=== PATIENT | female | born 1970 | race African-American/Black ===

== ENCOUNTER 2019-01-27 18:23 | Emergency (ER) | payer OTHER ==
[~2019-01-27] VITALS: Ht 167.6 cm; Wt 55.0 kg
[2019-01-27 19:12] LABS: BASOPHILS % 1.4 % (0.0-2.0); EOSINOPHILS % 0.9 % (0.0-5.0); HEMATOCRIT. 32.1 % (36.0-48.0); HEMOGLOBIN. 10.6 g/dL (12.0-16.0); MEAN CORPUSCULAR HEMOGLOBIN 29.9 pg (28.0-32.0); MEAN CORPUSCULAR VOLUME 90.1 fL (81.0-99.0); MEAN PLATELET VOLUME 7.9 fl (7.4-10.4); NEUTROPHILS % 54.7 % (40.0-76.0); PLATELET 250 x1000/uL (130-400); RED BLOOD CELL COUNT 3.56 mill/uL (4.2-5.4); RED CELL DISTRIBUTION WIDTH 14.8 % (11.6-14.6)
[2019-01-27 19:15] LABS: CHLORIDE 107 mEq/L (98-107)
[2019-01-27 19:16] LABS: INR 1.1; PROTHROMBIN TIME 11.4 sec (9.6-11.0)
[2019-01-27 19:22] LABS: ETHANOL BLOOD < 10 mg/dL
[2019-01-27 19:31] LABS: HCG SCREEN NEGATIVE
[2019-01-27] MEDS ORDERED: ASPIRIN 325MG TABLET PO ONE (22:15)
[2019-01-27] MEDS ORDERED: CLOPIDOGREL 75MG TABLET PO ONE (22:15)
[2019-01-27 22:50] VITALS: BP 106/76
== END 2019-01-27 23:20 | disposition short-term general hospital (02) ==
LOC: ER 18:28
DX: I63.9 Cerebral infarction, unspecified (principal); F41.9 Anxiety disorder, unspecified; I10 Essential (primary) hypertension; J45.909 Unspecified asthma, uncomplicated; K76.9 Liver disease, unspecified; Z88.5 Allergy status to narcotic agent; Z91.041 Radiographic dye allergy status
CPT/HCPCS: 36415; 71045; 80320; 82140; 84703; 93005; 99291; G0480

== ENCOUNTER 2020-09-06 00:39 | Emergency (ER) | payer OTHER ==
[~2020-09-06] VITALS: Ht 172.7 cm; Wt 80.0 kg
[2020-09-06 01:35] LABS: BASOPHILS % 0.3 % (0.0-2.0); EOSINOPHILS % 0.6 % (0.0-5.0); HEMATOCRIT. 45.3 % (36.0-48.0); HEMOGLOBIN. 14.9 g/dL (12.0-16.0); LYMPHOCYTES % 39.2 % (20.0-50.0); MEAN CORPUSCULAR HEMOGLOBIN 30.2 pg (28.0-32.0); MEAN CORPUSCULAR VOLUME 91.5 fL (81.0-99.0); MEAN PLATELET VOLUME 8.5 fl (7.4-10.4); MONOCYTES % 6.4 % (2.0-8.0); NEUTROPHILS % 53.5 % (40.0-76.0); PLATELET 88 x1000/uL (130-400); RED BLOOD CELL COUNT 4.95 mill/uL (4.2-5.4); RED CELL DISTRIBUTION WIDTH 20.2 % (11.6-14.6)
[2020-09-06 01:41] LABS: CHLORIDE 105 mEq/L (98-107)
[2020-09-06 01:45] LABS: ETHANOL BLOOD < 10 mg/dL
[2020-09-06 05:40] LABS: *AMPHETAMINES SCREEN URINE NEGATIVE (NEGATIVE); *BARBITURATES SCREEN URINE NEGATIVE (NEGATIVE)
[2020-09-06 05:42] LABS: *BENZODIAZEPINES SCREEN URINE NEGATIVE (NEGATIVE); *COCAINE SCREEN URINE NEGATIVE (NEGATIVE); CANNABINOID URINE SCREEN NEGATIVE (NEGATIVE); METHADONE URINE SCREEN NEGATIVE (NEGATIVE); OPIATES URINE SCREEN NEGATIVE (NEGATIVE); PHENCYCLIDINE URINE SCREEN NEGATIVE (NEGATIVE)
[2020-09-06 07:01] VITALS: BP 142/81
== END 2020-09-06 07:16 | disposition left against medical advice (07) ==
LOC: ER 01:02 → CANBEDREQ 13:08
DX: R07.89 Other chest pain (principal); R94.39 Abnormal result of other cardiovascular function study; I10 Essential (primary) hypertension; J45.909 Unspecified asthma, uncomplicated; F17.210 Nicotine dependence, cigarettes, uncomplicated; Z86.73 Personal history of transient ischemic attack (TIA), and cerebral infarction without residual deficits; Z88.0 Allergy status to penicillin; Z88.5 Allergy status to narcotic agent; Z91.041 Radiographic dye allergy status
CPT/HCPCS: 36415; 71045; 80053; 80305; 80320; 83880; 84484; 85025; 93005; 99285; G0480

== ENCOUNTER 2021-03-23 03:21 | Inpatient (IN) | payer MEDICAID, OTHER ==
[~2021-03-23] VITALS: Ht 180.3 cm; Wt 72.4 kg
[2021-03-23] MEDS ORDERED: ASPIRIN 81MG TABLET PO ONE (03:45)
[2021-03-23] MEDS ORDERED: NITROGLYCERIN 0.4MG TABLET SL SL PRN (03:45)
[2021-03-23 04:20] LABS: BASOPHILS % 0.4 % (0.0-2.0); EOSINOPHILS % 0.5 % (0.0-5.0); HEMATOCRIT. 40.5 % (36.0-48.0); HEMOGLOBIN. 13.6 g/dL (12.0-16.0); LYMPHOCYTES % 29.6 % (20.0-50.0); MEAN CORPUSCULAR HEMOGLOBIN 31.9 pg (28.0-32.0); MEAN CORPUSCULAR VOLUME 94.8 fL (81.0-99.0); MEAN PLATELET VOLUME 8.9 fl (7.4-10.4); MONOCYTES % 7.5 % (2.0-8.0); PLATELET 70 x1000/uL (130-400); RED BLOOD CELL COUNT 4.28 mill/uL (4.2-5.4); RED CELL DISTRIBUTION WIDTH 19.1 % (11.6-14.6)
[2021-03-23 04:27] LABS: CHLORIDE 106 mEq/L (98-107)
[2021-03-23] MEDS ORDERED: POTASSIUM CHLORIDE INJ 40 MEQ in DEXT 5% WATER 250 ML IV NR (05:45)
[2021-03-23] MEDS ORDERED: NITROGLYCERIN OINT 1GM/INCH UDPKT TD PRN (10:15)
[2021-03-23] MEDS: ASPIRIN 81MG TABLET PO SCH (11:06)
[2021-03-23] MEDS ORDERED: ONDANSETRON HCL 4MG/2ML INJ IV PRN (14:15)
[2021-03-23] MEDS ORDERED: FLUTICASONE/VILANTEROL 200-25 BLST.W.DEV ORI SCH (14:15)
[2021-03-23] MEDS ORDERED: ENOXAPARIN 40MG/0.4ML SYR SUBCUT SCH (14:15)
[2021-03-23] MEDS ORDERED: ACETAMINOPHEN 325MG TABLET PO PRN (14:15)
[2021-03-23] MEDS ORDERED: CLONIDINE 0.1MG TABLET PO PRN (14:15)
[2021-03-23 14:40] LABS: PROTHROMBIN TIME 10.9 sec (9.6-11.0)
[2021-03-23] MEDS: SODIUM CHLORIDE 0.9% 1,000 ML IV SCH (15:18)
[2021-03-23 17:45] VITALS: BP 108/85
[2021-03-23 17:58] VITALS: BP 131/98
[2021-03-23] MEDS ORDERED: PNEUMOCOCCAL 23-VAL P-SAC VAC 0.5 ML IM ONE (18:00)
[2021-03-23 20:00] VITALS: BP 116/79
[2021-03-23] MEDS: IPRATROPIUM/ALBUTEROL 0.5-3(2.5)MG/3ML NEB HHN SCH (20:41)
[2021-03-23] MEDS: METOPROLOL TARTRATE 25MG TABLET PO SCH (20:57)
[2021-03-23] MEDS: ATORVASTATIN CALCIUM 20MG TABLET PO SCH (20:58)
[2021-03-23 22:00] VITALS: BP 108/70
[2021-03-24] VITALS (11 sets, daily range): BP systolic 111–129; BP diastolic 70–94
[2021-03-24] MEDS: IPRATROPIUM/ALBUTEROL 0.5-3(2.5)MG/3ML NEB HHN SCH ×3 (01:00→04:50)
[2021-03-24] MEDS: SODIUM CHLORIDE 0.9% 1,000 ML IV SCH ×2 (04:04→18:05)
[2021-03-24 06:13] LABS: CHLORIDE 108 mEq/L (98-107)
[2021-03-24 06:41] LABS: BASOPHILS % 0.3 % (0.0-2.0); EOSINOPHILS % 0.9 % (0.0-5.0); HEMATOCRIT. 37.9 % (36.0-48.0); HEMOGLOBIN. 12.5 g/dL (12.0-16.0); MEAN CORPUSCULAR HEMOGLOBIN 31.4 pg (28.0-32.0); MEAN CORPUSCULAR VOLUME 95.3 fL (81.0-99.0); MEAN PLATELET VOLUME 9.3 fl (7.4-10.4); MONOCYTES % 11.3 % (2.0-8.0); NEUTROPHILS % 51.5 % (40.0-76.0); PLATELET 70 x1000/uL (130-400); RED BLOOD CELL COUNT 3.98 mill/uL (4.2-5.4)
[2021-03-24] MEDS: METOPROLOL TARTRATE 25MG TABLET PO SCH ×2 (09:43→21:14)
[2021-03-24] MEDS: ASPIRIN 81MG TABLET PO SCH (09:43)
[2021-03-24] MEDS ORDERED: BENZONATATE 100MG CAPSULE PO PRN (10:00)
[2021-03-24] MEDS ORDERED: DEXT 5% WATER + KCL 40MEQ/L 1,000 ML IV ONE (10:00)
[2021-03-24] MEDS ORDERED: MAGNESIUM 2 G PREMIX 50 ML IV SCH (11:00)
[2021-03-24] MEDS ORDERED: POTASSIUM CHLORIDE INJ 40 MEQ in DEXT 5% WATER 250 ML IV SCH (11:00)
[2021-03-24] MEDS: ATORVASTATIN CALCIUM 20MG TABLET PO SCH (21:13)
[2021-03-24] MEDS: ZOLPIDEM TARTRATE 5MG TABLET PO PRN (21:18)
[2021-03-25] VITALS (10 sets, daily range): BP systolic 108–146; BP diastolic 70–97
[2021-03-25] MEDS: SODIUM CHLORIDE 0.9% 1,000 ML IV SCH ×2 (06:18→19:51)
[2021-03-25] MEDS: BUDESONIDE 0.5MG/2ML NEB HHN SCH ×2 (07:43→08:00)
[2021-03-25] MEDS: IPRATROPIUM/ALBUTEROL 0.5-3(2.5)MG/3ML NEB HHN SCH ×4 (08:00→23:04)
[2021-03-25] MEDS ORDERED: REGADENOSON 0.4 MG/5 ML IV ONE (09:00)
[2021-03-25] MEDS: ASPIRIN 81MG TABLET PO SCH (09:56)
[2021-03-25] MEDS: METOPROLOL TARTRATE 25MG TABLET PO SCH ×2 (09:56→20:21)
[2021-03-25] MEDS: ATORVASTATIN CALCIUM 20MG TABLET PO SCH (20:20)
[2021-03-25] MEDS: ZOLPIDEM TARTRATE 5MG TABLET PO PRN (20:20)
[2021-03-26] MEDS: IPRATROPIUM/ALBUTEROL 0.5-3(2.5)MG/3ML NEB HHN SCH ×4 (01:00→12:00)
[2021-03-26 02:00] VITALS: BP 133/77
[2021-03-26 04:00] VITALS: BP 115/88
[2021-03-26 06:00] VITALS: BP 146/91
[2021-03-26 06:32] LABS: BASOPHILS % 0.3 % (0.0-2.0); EOSINOPHILS % 0.7 % (0.0-5.0); HEMOGLOBIN. 12.2 g/dL (12.0-16.0); LYMPHOCYTES % 33.7 % (20.0-50.0); MEAN CORPUSCULAR HEMOGLOBIN 31.7 pg (28.0-32.0); MEAN CORPUSCULAR VOLUME 96.2 fL (81.0-99.0); MEAN PLATELET VOLUME 9.5 fl (7.4-10.4); MONOCYTES % 9.7 % (2.0-8.0); NEUTROPHILS % 55.6 % (40.0-76.0); PLATELET 107 x1000/uL (130-400); RED BLOOD CELL COUNT 3.85 mill/uL (4.2-5.4); RED CELL DISTRIBUTION WIDTH 19.1 % (11.6-14.6)
[2021-03-26 06:58] LABS: CHLORIDE 111 mEq/L (98-107)
[2021-03-26 07:47] VITALS: BP 139/84
[2021-03-26] MEDS: SODIUM CHLORIDE 0.9% 1,000 ML IV SCH (08:55)
[2021-03-26] MEDS ORDERED: REGADENOSON 0.4 MG/5 ML IV ONE (09:36)
[2021-03-26] MEDS: ASPIRIN 81MG TABLET PO SCH (10:28)
[2021-03-26] MEDS: METOPROLOL TARTRATE 25MG TABLET PO SCH (10:29)
== END 2021-03-26 11:40 | disposition left against medical advice (07) | DRG 203 ==
LOC: ER 03:21 → MICUSO 06:57 → 3WST 15:24
PROVIDERS: ADMIT Internal Medicine; ATTEND Internal Medicine
DX: M94.0 Chondrocostal junction syndrome [Tietze] (principal); I69.354 Hemiplegia and hemiparesis following cerebral infarction affecting left non-dominant side; Z20.822 Contact with and (suspected) exposure to COVID-19; I10 Essential (primary) hypertension; F17.210 Nicotine dependence, cigarettes, uncomplicated; J45.909 Unspecified asthma, uncomplicated; E78.5 Hyperlipidemia, unspecified; F10.20 Alcohol dependence, uncomplicated; E87.6 Hypokalemia; Z91.14 Patient's other noncompliance with medication regimen; Z88.0 Allergy status to penicillin; Z82.49 Family history of ischemic heart disease and other diseases of the circulatory system; Z88.6 Allergy status to analgesic agent; Z91.041 Radiographic dye allergy status
CPT/HCPCS: 36415; 71045; 78452; 80048; 80053; 80061; 83735; 83880; 84484; 85025; 87426; 90732; 93005; 93017; 93306; 93970; 99285; A9500; J2785; J3475; J3480; J7060; J7626

== ENCOUNTER 2021-05-06 03:14 | Inpatient (IN) | payer OTHER ==
[~2021-05-06] VITALS: Ht 180.3 cm; Wt 71.2 kg
[2021-05-06] MEDS ORDERED: NITROGLYCERIN 50MG PREMIX 250 ML IV ONE (04:00)
[2021-05-06] MEDS ORDERED: HEPARIN 25,000 UNITS PREMIX 250 ML IV PRN (04:00)
[2021-05-06] MEDS ORDERED: HEPARIN 5000 UNITS/ML VIAL IV PRN ×2 (04:00)
[2021-05-06] MEDS ORDERED: HEPARIN 5000 UNITS/ML VIAL IV SCH (04:00)
[2021-05-06 04:10] LABS: BASOPHILS % 0.4 % (0.0-2.0); EOSINOPHILS % 0.4 % (0.0-5.0); HEMATOCRIT. 37.2 % (36.0-48.0); HEMOGLOBIN. 12.4 g/dL (12.0-16.0); LYMPHOCYTES % 29.2 % (20.0-50.0); MEAN CORPUSCULAR HEMOGLOBIN 31.9 pg (28.0-32.0); MEAN CORPUSCULAR VOLUME 95.4 fL (81.0-99.0); PLATELET 94 x1000/uL (130-400); RED CELL DISTRIBUTION WIDTH 18.2 % (11.6-14.6)
[2021-05-06 04:17] LABS: CHLORIDE 106 mEq/L (98-107)
[2021-05-06] MEDS ORDERED: ONDANSETRON HCL 4MG/2ML INJ IV PRN (10:30)
[2021-05-06] MEDS ORDERED: HYDROCODONE/ACETAMINOPHEN 5/325MG TABLET PO PRN (10:30)
[2021-05-06] MEDS ORDERED: MAGNESIUM/ALUMINUM HYDROXIDE/SIMETHICONE 30ML UDC PO PRN (10:30)
[2021-05-06] MEDS ORDERED: DOCUSATE SODIUM 100MG CAPSULE PO PRN (10:30)
[2021-05-06] MEDS ORDERED: IPRATROPIUM/ALBUTEROL 0.5-3(2.5)MG/3ML NEB HHN PRN (10:30)
[2021-05-06] MEDS ORDERED: CLONIDINE 0.1MG TABLET PO PRN (10:30)
[2021-05-06] MEDS ORDERED: HYDRALAZINE 20MG/ML VIAL IV PRN (10:30)
[2021-05-06] MEDS ORDERED: GUAIFENESIN 200MG/10ML SUGAR FREE UDC PO PRN (10:30)
[2021-05-06] MEDS ORDERED: ACETAMINOPHEN 325MG TABLET PO PRN (10:30)
[2021-05-06] MEDS ORDERED: DIPHENHYDRAMINE 50MG/ML VIAL IV PRN (10:30)
[2021-05-06] MEDS ORDERED: MORPHINE SULFATE 2 MG/ML CPJ (NOT FOR IM USE) IV PRN (10:30)
[2021-05-06] MEDS ORDERED: NALOXONE HCL 0.4MG/ML VIAL IV PRN (10:45)
[2021-05-06 12:30] VITALS: BP 127/78
[2021-05-06] MEDS ORDERED: POTASSIUM CHLORIDE INJ 40 MEQ in DEXT 5% WATER 250 ML IV NR (13:00)
[2021-05-06] MEDS: SODIUM CHLORIDE 0.9% INJ 3ML FLUSH IVF SCH ×2 (14:00→21:56)
[2021-05-06 16:00] VITALS: BP 127/78
[2021-05-06] MEDS: ASPIRIN 81MG TABLET PO SCH (17:52)
[2021-05-06] MEDS: THIAMINE HCL 100MG TABLET PO SCH (17:52)
[2021-05-06] MEDS: ENOXAPARIN 40MG/0.4ML SYR SUBCUT SCH (17:52)
[2021-05-06] MEDS: METOPROLOL TARTRATE 25MG TABLET PO SCH ×2 (17:52→21:56)
[2021-05-06] MEDS: FOLIC ACID/VITAMIN B COMP W-C TABLET PO SCH (17:53)
[2021-05-06 18:00] VITALS: BP 139/89
[2021-05-06 18:18] LABS: CREATINE KINASE 36 IU/L (26-192)
[2021-05-06 18:20] LABS: CREATINE KINASE MB FRACTION < 1.0 ng/mL (0.5-3.6)
[2021-05-06 20:00] VITALS: BP 121/94
[2021-05-06] MEDS: LORAZEPAM 2MG/ML CPJ IV PRN (21:56)
[2021-05-06 22:00] VITALS: BP 117/75
[2021-05-06 23:30] LABS: CREATINE KINASE 42 IU/L (26-192)
[2021-05-06 23:31] LABS: CREATINE KINASE MB FRACTION < 1.0 ng/mL (0.5-3.6)
[2021-05-07] VITALS (13 sets, daily range): BP systolic 100–142; BP diastolic 58–93
[2021-05-07] MEDS: SODIUM CHLORIDE 0.9% INJ 3ML FLUSH IVF SCH ×3 (05:20→22:19)
[2021-05-07 06:31] LABS: BASOPHILS % 0.2 % (0.0-2.0); EOSINOPHILS % 0.7 % (0.0-5.0); HEMATOCRIT. 35.6 % (36.0-48.0); HEMOGLOBIN. 11.9 g/dL (12.0-16.0); LYMPHOCYTES % 46.4 % (20.0-50.0); MEAN CORPUSCULAR HEMOGLOBIN 31.3 pg (28.0-32.0); MEAN CORPUSCULAR VOLUME 93.7 fL (81.0-99.0); MEAN PLATELET VOLUME 9.2 fl (7.4-10.4); MONOCYTES % 13.7 % (2.0-8.0); PLATELET 87 x1000/uL (130-400); RED CELL DISTRIBUTION WIDTH 17.8 % (11.6-14.6)
[2021-05-07 06:43] LABS: CHLORIDE 112 mEq/L (98-107)
[2021-05-07] MEDS: ASPIRIN 81MG TABLET PO SCH (08:46)
[2021-05-07] MEDS: METOPROLOL TARTRATE 25MG TABLET PO SCH ×2 (08:46→21:00)
[2021-05-07] MEDS: FOLIC ACID/VITAMIN B COMP W-C TABLET PO SCH (08:47)
[2021-05-07] MEDS: THIAMINE HCL 100MG TABLET PO SCH (08:47)
[2021-05-07] MEDS: ENOXAPARIN 40MG/0.4ML SYR SUBCUT SCH (11:00)
[2021-05-07 17:07] LABS: HEPATITIS B SURFACE ANTIGEN NEGATIVE
[2021-05-07] MEDS: LORAZEPAM 2MG/ML CPJ IV PRN (22:20)
[2021-05-08] VITALS (9 sets, daily range): BP systolic 105–142; BP diastolic 74–94
[2021-05-08] MEDS: SODIUM CHLORIDE 0.9% INJ 3ML FLUSH IVF SCH ×2 (04:43→14:23)
[2021-05-08 04:58] LABS: BASOPHILS % 0.6 % (0.0-2.0); EOSINOPHILS % 0.7 % (0.0-5.0); HEMATOCRIT. 35.8 % (36.0-48.0); HEMOGLOBIN. 12.1 g/dL (12.0-16.0); LYMPHOCYTES % 40.5 % (20.0-50.0); MEAN CORPUSCULAR HEMOGLOBIN 31.9 pg (28.0-32.0); MEAN CORPUSCULAR VOLUME 94.6 fL (81.0-99.0); MEAN PLATELET VOLUME 9.1 fl (7.4-10.4); MONOCYTES % 12.2 % (2.0-8.0); PLATELET 94 x1000/uL (130-400); RED BLOOD CELL COUNT 3.79 mill/uL (4.2-5.4); RED CELL DISTRIBUTION WIDTH 18.1 % (11.6-14.6)
[2021-05-08 05:04] LABS: PROTHROMBIN TIME 10.9 sec (9.6-11.0)
[2021-05-08 05:08] LABS: CHLORIDE 109 mEq/L (98-107)
[2021-05-08] MEDS: THIAMINE HCL 100MG TABLET PO SCH (08:24)
[2021-05-08] MEDS: FOLIC ACID/VITAMIN B COMP W-C TABLET PO SCH (08:24)
[2021-05-08] MEDS: METOPROLOL TARTRATE 25MG TABLET PO SCH (08:24)
[2021-05-08] MEDS: ASPIRIN 81MG TABLET PO SCH (08:24)
[2021-05-08] MEDS ORDERED: SPIRONOLACTONE 25MG TABLET PO SCH (09:00)
[2021-05-08] MEDS ORDERED: FUROSEMIDE 40MG/4ML VIAL IVP SCH (09:00)
[2021-05-08] MEDS: ENOXAPARIN 40MG/0.4ML SYR SUBCUT SCH (11:16)
== END 2021-05-08 17:35 | disposition home or self-care (01) | DRG 198 ==
LOC: ER 03:14 → MICUSO 09:14 → 5EST 11:06
PROVIDERS: ADMIT Internal Medicine; ATTEND Internal Medicine
DX: I25.110 Atherosclerotic heart disease of native coronary artery with unstable angina pectoris (principal); I50.23 Acute on chronic systolic (congestive) heart failure; E46 Unspecified protein-calorie malnutrition; I11.0 Hypertensive heart disease with heart failure; D69.6 Thrombocytopenia, unspecified; E78.00 Pure hypercholesterolemia, unspecified; E78.5 Hyperlipidemia, unspecified; E87.6 Hypokalemia; F10.10 Alcohol abuse, uncomplicated; F17.210 Nicotine dependence, cigarettes, uncomplicated; Y90.9 Presence of alcohol in blood, level not specified; Z20.822 Contact with and (suspected) exposure to COVID-19; R74.01 Elevation of levels of liver transaminase levels; K76.9 Liver disease, unspecified; Z82.49 Family history of ischemic heart disease and other diseases of the circulatory system; Z86.73 Personal history of transient ischemic attack (TIA), and cerebral infarction without residual deficits; Z68.21 Body mass index [BMI] 21.0-21.9, adult; Z95.5 Presence of coronary angioplasty implant and graft; Z88.5 Allergy status to narcotic agent; Z88.0 Allergy status to penicillin; Z91.041 Radiographic dye allergy status; Z79.899 Other long term (current) drug therapy; Z71.6 Tobacco abuse counseling
CPT/HCPCS: 36415; 71045; 76700; 80048; 80053; 82550; 82553; 83880; 84443; 84484; 85025; 86705; 86709; 86803; 87340; 87426; 93005; 93970; 99285; J1644; J1650; J1940; J2060; J2270; J2405; J3480; J3490; J7060

== ENCOUNTER 2021-05-10 05:00 | Emergency (ER) | payer OTHER ==
[~2021-05-10] VITALS: Ht 180.3 cm; Wt 64.0 kg
[2021-05-10] MEDS ORDERED: ALBUTEROL (0.083%) 2.5MG/3ML NEB HHN STA (06:16)
[2021-05-10] MEDS ORDERED: METHYLPREDNISOLONE SOD SUCC 125 MG/2 ML VIAL IV STA (06:16)
[2021-05-10] MEDS ORDERED: IPRATROPIUM BROMIDE (0.02%) 0.5MG/2.5ML NEB HHN STA (06:16)
[2021-05-10] MEDS ORDERED: ASPIRIN 81MG TABLET PO ONE (06:30)
[2021-05-10 07:02] LABS: BASOPHILS % 0.6 % (0.0-2.0); CHLORIDE 109 mEq/L (98-107); EOSINOPHILS % 0.3 % (0.0-5.0); HEMATOCRIT. 37.8 % (36.0-48.0); HEMOGLOBIN. 12.7 g/dL (12.0-16.0); LYMPHOCYTES % 21.7 % (20.0-50.0); MEAN CORPUSCULAR HEMOGLOBIN 31.6 pg (28.0-32.0); MEAN CORPUSCULAR VOLUME 94.3 fL (81.0-99.0); MEAN PLATELET VOLUME 9.5 fl (7.4-10.4); MONOCYTES % 10.9 % (2.0-8.0); NEUTROPHILS % 66.5 % (40.0-76.0); PLATELET 152 x1000/uL (130-400); RED BLOOD CELL COUNT 4.01 mill/uL (4.2-5.4); RED CELL DISTRIBUTION WIDTH 17.9 % (11.6-14.6)
[2021-05-10 07:12] LABS: ETHANOL BLOOD < 10 mg/dL
[2021-05-10 08:10] LABS: *AMPHETAMINES SCREEN URINE NEGATIVE (NEGATIVE); *BARBITURATES SCREEN URINE NEGATIVE (NEGATIVE)
[2021-05-10 08:11] LABS: *BENZODIAZEPINES SCREEN URINE NEGATIVE (NEGATIVE); *COCAINE SCREEN URINE NEGATIVE (NEGATIVE); METHADONE URINE SCREEN NEGATIVE (NEGATIVE); OPIATES URINE SCREEN NEGATIVE (NEGATIVE); PHENCYCLIDINE URINE SCREEN NEGATIVE (NEGATIVE)
[2021-05-10 08:12] LABS: CANNABINOID URINE SCREEN NEGATIVE (NEGATIVE)
[2021-05-10 10:02] VITALS: BP 116/67
== END 2021-05-10 10:06 | disposition short-term general hospital (02) ==
LOC: ER 05:00 → CANBEDREQ 16:21
DX: J44.1 Chronic obstructive pulmonary disease with (acute) exacerbation (principal); R07.89 Other chest pain; I10 Essential (primary) hypertension; E78.00 Pure hypercholesterolemia, unspecified; F17.210 Nicotine dependence, cigarettes, uncomplicated; Z86.73 Personal history of transient ischemic attack (TIA), and cerebral infarction without residual deficits; Z71.6 Tobacco abuse counseling; Z88.5 Allergy status to narcotic agent; Z91.041 Radiographic dye allergy status; Z88.0 Allergy status to penicillin
CPT/HCPCS: 36415; 71045; 80053; 80305; 80320; 83690; 83880; 84484; 85025; 93005; 94640; 96374; 99285; 99406; J2930; Z7610; G0480

== ENCOUNTER 2022-06-06 16:03 | Emergency (ER) | payer OTHER ==
[~2022-06-06] VITALS: Ht 165.1 cm; Wt 54.0 kg
[2022-06-06] MEDS ORDERED: PANTOPRAZOLE SODIUM 40 MG/VIAL IV STA (16:17)
[2022-06-06] MEDS ORDERED: SODIUM CHLORIDE 0.9% 1,000 ML IV ONE (16:30)
[2022-06-06] MEDS ORDERED: OCTREOTIDE ACETATE 50 MCG/ML 1ML IV ONE (16:30)
[2022-06-06 16:53] LABS: HEMATOCRIT. 32.7 % (36.0-48.0); HEMOGLOBIN. 10.3 g/dL (12.0-16.0); MEAN CORPUSCULAR HEMOGLOBIN 26.2 pg (28.0-32.0); MEAN CORPUSCULAR VOLUME 83.2 fL (81.0-99.0); MEAN PLATELET VOLUME 9.5 fl (7.4-10.4); PLATELET 150 x1000/uL (130-400); RED BLOOD CELL COUNT 3.93 mill/uL (4.2-5.4); RED CELL DISTRIBUTION WIDTH 16.1 % (11.6-14.6)
[2022-06-06 17:02] LABS: CHLORIDE 101 mEq/L (98-107)
[2022-06-06 17:14] LABS: ETHANOL BLOOD < 10 mg/dL
[2022-06-06 17:16] LABS: PLATELET ESTIMATE NORMAL
[2022-06-06] MEDS ORDERED: LEVOFLOXACIN 750MG PREMIX 150 ML IV ONE (17:45)
[2022-06-07] VITALS: BP 111/77
[2022-06-07 00:15] LABS: INR 1.3; PROTHROMBIN TIME 13.5 sec (9.6-11.0)
== END 2022-06-07 01:35 | disposition short-term general hospital (02) ==
LOC: ER 16:03
DX: K70.30 Alcoholic cirrhosis of liver without ascites (principal); D64.9 Anemia, unspecified; J18.9 Pneumonia, unspecified organism; I10 Essential (primary) hypertension; J45.909 Unspecified asthma, uncomplicated; Z20.822 Contact with and (suspected) exposure to COVID-19; Z88.0 Allergy status to penicillin; Z88.6 Allergy status to analgesic agent; Z88.5 Allergy status to narcotic agent; Z86.73 Personal history of transient ischemic attack (TIA), and cerebral infarction without residual deficits
CPT/HCPCS: 36415; 71045; 80053; 80320; 82962; 83605; 83690; 83880; 84484; 85025; 85610; 86850; 86900; 86901; 87040; 87077; 87186; 87426; 93005; 96361; 96365; 96366; 96375; 99285; C9113; C9803; J1956; J2354; J7030; G0480